=== PATIENT | male | born 2000 | race African-American/Black ===

== ENCOUNTER 2022-12-25 04:17 | Emergency (ER) | payer OTHER ==
[~2022-12-25] VITALS: Ht 177.8 cm; Wt 74.0 kg
[2022-12-25 04:20] VITALS: O2SAT 99
[2022-12-25 05:15] LABS: BASOPHILS % 0.5 % (0.0-2.0); EOSINOPHILS % 1.4 % (0.0-5.0); HEMATOCRIT. 42.8 % (42.0-52.0); HEMOGLOBIN. 14.5 g/dL (14.0-18.0); MEAN CORPUSCULAR HEMOGLOBIN 31.1 pg (28.0-32.0); MEAN CORPUSCULAR VOLUME 91.9 fL (80.0-94.0); MEAN PLATELET VOLUME 8.3 fl (7.4-10.4); MONOCYTES % 5.5 % (2.0-8.0); NEUTROPHILS % 59.6 % (40.0-76.0); PLATELET 260 x1000/uL (130-400); RED BLOOD CELL COUNT 4.66 mill/uL (4.7-6.1); RED CELL DISTRIBUTION WIDTH 12.4 % (11.6-14.6)
[2022-12-25 05:17] LABS: *AMPHETAMINES SCREEN URINE NEGATIVE (NEGATIVE); *BARBITURATES SCREEN URINE NEGATIVE (NEGATIVE); *BENZODIAZEPINES SCREEN URINE NEGATIVE (NEGATIVE); *COCAINE SCREEN URINE NEGATIVE (NEGATIVE); CANNABINOID URINE SCREEN NEGATIVE (NEGATIVE); METHADONE URINE SCREEN NEGATIVE (NEGATIVE); OPIATES URINE SCREEN NEGATIVE (NEGATIVE); PHENCYCLIDINE URINE SCREEN NEGATIVE (NEGATIVE)
[2022-12-25 05:22] LABS: CHLORIDE 110 mEq/L (98-107)
[2022-12-25 05:51] LABS: ETHANOL BLOOD 300 mg/dL (-10)
[2022-12-25 11:00] VITALS: BP 128/80; PULSE 76; RESP 16; TEMP 97.5
== END 2022-12-25 11:00 | disposition home or self-care (01) ==
LOC: ER 04:17 → EDBD 04:17 → ER 11:00
DX: F10.129 Alcohol abuse with intoxication, unspecified (principal); R94.31 Abnormal electrocardiogram [ECG] [EKG]; Y90.8 Blood alcohol level of 240 mg/100 ml or more
CPT/HCPCS: 36415; 80053; 80305; 80307; 80320; 80329; 85025; 93005; 99285; G0480